=== PATIENT | male | born 1950 | race Two or more races ===

== ENCOUNTER 2021-10-30 01:12 | Emergency (ER) | payer OTHER ==
[~2021-10-30] VITALS: Ht 167.6 cm; Wt 74.8 kg
[2021-10-30] MEDS ORDERED: COZAAR50 MG (01:46)
[2021-10-30] MEDS ORDERED: ECOTRIN81 MG (01:47)
[2021-10-30] MEDS ORDERED: ISOSORBIDE DINI30 MG (01:47)
[2021-10-30] MEDS ORDERED: TOPROL XL25 M1 (01:49)
[2021-10-30] MEDS ORDERED: VISTARIL50 MG PO (08:10)
[2021-10-30] MEDS ORDERED: LOSARTAN POTAS100 MG PO (08:13)
== END 2021-10-30 08:34 | disposition home or self-care (01) ==
LOC: ER 01:12 → CPU-OBS 01:15 → ER 01:15
DX: I16.0 Hypertensive urgency (principal); I10 Essential (primary) hypertension; R07.89 Other chest pain